=== PATIENT | female | born 1965 | race Caucasian/White ===

== ENCOUNTER 2017-07-29 01:42 | Emergency (ER) | payer OTHER ==
--- NOTE | 2017-07-29 01:50 | PDOC ---
History of Present Illness - General Chief Complaint: Bite Stated Complaint: BITE TO RIGHT WRIST Time Seen by Provider: 07/29/17 01:50 History Source: Patient, Spouse Exam Limitations: No Limitations - History of Present Illness Initial Comments: 07/29/17 04:18 Pt states that yesterday she had a bug bite on her right volar wrist, now with surrounding cellulitis that spreads up the arm as well as an area of herpetic looking blistes at the bite area. volar wrist is swollen, bu pt has FROM of fingers and no pain and no problem supinating and pronating. Pt has no DM; she is obese. Pt took a keflex, as she was told to do by her orthopedic surgeon, after her bilat knee replacements. SHe was told to start abx for any skin infection. Pt is afebrile and appears well. She is concerned that the redness on the wrist is spreading. Timing/Duration: 24 hours Modifying Factors: worse with: cold therapy, eating, immobilization, medication , movement, rest, other Associated Symptoms: denies: denies symptoms, chest pain, cough, diaphoresis, fever/chills, headaches, loss of appetite, malaise, nausea/vomiting, rash, seizure, shortness of breath, syncope, weakness, other Aspirin Received prior to arrival: No: no aspirin today, unknown, 81 mg x 1, 81 mg x 2, 81 mg x 3, 81 mg x 4, 325 mg x 1, provided at home, provided by EMS, provided by [facility] Contraindications(Core Measure): No: Allergy, Other, Active Blding w/i 24 hrs., Plavix, Receiving Warfarin Beta Talib Contraindications(Core Measure): No: Not Prescribed, Allergy, Bradycardia (HR <60bpm), Advanced Heart Block, Pacemaker, Other Past History - Travel Traveled outside of the country in the last 30 days: No Close contact w/someone who was outside of country & ill: No - Past Medical History Allergies/Adverse Reactions: Allergies Allergy/AdvReac Type Severity Reaction Status Date / Time No Known Allergies Allergy Verified 07/29/17 01:44 Home Medications: Ambulatory Orders Biotin 1 mg PO DAILY 06/10/15 Calcium/D3/Mag Ox/Criminal Defense Lawyer/Timothy/Zn [Caltrate+D3 Plus Mineral Minis] 1 each PO DAILY 06/10/15 Cyanocobalamin (Vitamin B-12) [Vitamin B12] 2,500 mcg PO DAILY 06/10/15 Ferrous Sulfate [Feosol] 325 mg PO DAILY 06/10/15 Levothyroxine [Synthroid -] 25 mcg PO DAILY 06/10/15 Meloxicam [Mobic] 7.5 mg PO DAILY 06/10/15 Multivitamin with Minerals [Icaps Plus] 1 each PO DAILY 06/10/15 Cephalexin [Keflex] 500 mg PO BID #14 capsule 07/29/17 Diphenhydramine HCl [Benadryl -] 25 mg PO Q6H #28 capsule 07/29/17 Escitalopram Oxalate [Lexapro -] 10 mg PO DAILY 07/29/17 Valacyclovir HCl [Valtrex] 1,000 mg PO TID #21 tablet 07/29/17 Thyroid Disease: Yes - Surgical History Cholecystectomy: Yes Orthopedic Surgery: Yes (B/L KNEE REPLACEMTS) - Suicide/Smoking/Psychosocial Hx Smoking History: Never smoked Hx Alcohol Use: Yes (RARE) Drug/Substance Use Hx: No Substance Use Type: None Hx Substance Use Treatment: No Review of Systems - Review of Systems Able to Perform ROS?: Yes Is the patient limited Mauritian proficient: No Constitutional: No: Symptoms Reported, See HPI, Chills, Diaphoresis, Fever, Loss of Appetite, Malaise, Night Sweats, Weakness, Weight Stable, Unintentional Wgt. Loss, Unexplained wgt Loss, Other HEENTM: No: Symptoms Reported, See HPI, Eye Pain, Blurred Vision, Tearing, Recent change in vision, Double Vision, Cataracts, Ear Pain, Ocular Prothesis, Ear Discharge, Nose Pain, Nose Congestion, Tinnitus, Nose Bleeding, Hearing Loss , Throat Pain, Throat Swelling, Mouth Pain, Dental Problems, Difficulty Swallowing, Mouth Swelling, Other Respiratory: No: Symptoms reported, See HPI, Cough, Orthopnea, Shortness of Breath, SOB with Exertion, SOB at Rest, Stridor, Wheezing, Productive cough, Hemoptysis, Other Cardiac (ROS): No: Symptoms Reported, See HPI, Chest Pain, Edema, Irregular Heart Rate, Lightheadedness, Palpitations, Syncope, Chest Tightness, Other ABD/GI: No: Symptoms Reported, See HPI, Abdominal Distended, Abd. Pain w/ defecation, Blood Streaked Bowels, Constipated, Diarrhea, Difficulty Swallowing , Nausea, Poor Appetite, Poor Fluid Intake, Rectal Bleeding, Vomiting, Indigestion, Abdominal cramping, Tarry Stools, Other : No: Symptoms Reported, See HPI, Burning, Dysuria, Discharge, Frequency, Flank Pain, Hematuria, Incontinence, Pain, Urgency, Testicular Mass, Testicular Swelling, Lesions, Testicular Pain, Other Musculoskeletal: No: Symptoms Reported, See HPI, Back Pain, Gout, Joint Pain, Joint Swelling, Muscle Pain, Muscle Weakness, Neck Pain, Joint Stiffness, Other Integumentary: No: Symptoms Reported, See HPI, Bruising, Change in Color, Change in Hair/Nails, Dryness, Erythema, Flushing, Lesions, Lumps, Pallor, Pruritus, Rash, Sweating, Other Neurological: No: Symptoms reported, See HPI, Headache, Numbness, Paresthesia, Pre-Existing Deficit, Seizure, Tingling, Tremors, Weakness, Unsteady Gait, Ataxia, Dizziness, Other Psychiatric: No: Anxiety, Depression, Frequent Crying, Stressors, Sleep Pattern Change, Emotional Problems, Mood Swings, Change in Appetite, Other Endocrine: No: Symptoms Reported, See HPI, Excessive Sweating, Flushing, Intolerance to Cold, Intolerance to Heat, Increased Hunger, Increased Thirst, Increased Urine, Unexplained Weight Gain, Unexplained Weight Loss, Change in Weight, Other *Physical Exam - Physical Exam General Appearance: Yes: Nourished, Appropriately Dressed HEENT: positive: EOMI, DA, Normal ENT Inspection, Normal Voice, Symmetrical, TMs Normal, Pharynx Normal Neck: positive: Trachea midline, Normal Thyroid, Supple Respiratory/Chest: positive: Lungs Clear, Normal Breath Sounds Cardiovascular: positive: Regular Rhythm, Regular Rate, S1, S2 Gastrointestinal/Abdominal: positive: Normal Bowel Sounds, Soft Musculoskeletal: positive: Normal Inspection Extremity: positive: Normal Capillary Refill, Normal Range of Motion, Swelling, Erythema, Other (right wrist volar swelling; no lymphangitis. No pain in the arm or wrist or fingers. Neurologically intact; strength 5/5. Flexors and extensors and lumbriacals intact.) Integumentary: positive: Erythema, Swelling, Other (herpetic like blisters at the area of the bug bite. Pt admits to icing the area and to scratching the bite extensively) Neurologic: positive: fast food worker II-XII NML intact, Fully Oriented, Alert, Normal Mood/ Affect, Normal Response, Motor Strength 07/13 ED Treatment Course - LABORATORY CBC & Chemistry Diagram: 07/29/17 02:24 Comment: Sed rate is 16 - normal Medical Decision Making - Medical Decision Making 07/29/17 04:23 t cory some sort of insect bite to the wrist -unclear etiology. Now herpes looking area at the bite and surrounding cellulitis. Pt was treated with a double dose of ancef, as she is over 250lbs, and she will go home with 500 keflex BID; Pt's CBC is normal and her sed rate is normal. She has been asked to follow with her PMD Dr. Bartholomew. She is stable for discharge at this time. *DC/Admit/Observation/Transfer Diagnosis at time of Disposition: Cellulitis, HSV infection - Discharge Dispostion Disposition: HOME Condition at time of disposition: Stable Decision to Admit order: No - Prescriptions Prescriptions: Cephalexin [Keflex] 500 mg PO BID #14 capsule Diphenhydramine HCl [Benadryl -] 25 mg PO Q6H #28 capsule Valacyclovir HCl [Valtrex] 1,000 mg PO TID #21 tablet - Referrals - Patient Instructions Printed Discharge Instructions: How to Care for an Insect Bite or Sting, DI for Cellulitis -- Adult, DI for Insect Bites and Stings - Post Discharge Activity
[2017-07-29 01:56] VITALS: BP 169/90; PULSE 95; TEMP 98.6; BMI 43.0
[2017-07-29] MEDS ORDERED: CEFAZOLIN 2 GM in DEXTROSE 5%-WATER - 50 ML IVPB ONE (02:05)
[2017-07-29] MEDS ORDERED: diphenhydrAMINE HCL 25 MG CAPSULE (FP) PO ONE (02:06)
[2017-07-29] MEDS ORDERED: diphenhydrAMINE HCL 50 MG CAPSULE ONE (02:15)
[2017-07-29] MEDS ORDERED: ceFAZolin SODIUM 1 GM VIAL ONE (02:15)
[2017-07-29 02:44] LABS: BASO % 0.7 % (0-2.0); HEMATOCRIT 43.1 % (32.4-45.2); HEMOGLOBIN 14.3 GM/dL (10.7-15.3); MCH 29.1 pg (25.7-33.7); MCHC 33.3 g/dl (32.0-36.0); MEAN CELL VOLUME 87.5 fl (80-96); MEAN PLT VOLUME 7.8 fl (7.5-11.1); MONO % 6.4 % (3.8-10.2); NEUT % 60.9 % (42.8-82.8); PLATELET COUNT 243 K/MM3 (134-434); RBC 4.93 M/mm3 (3.60-5.2); RDW 13.8 % (11.6-15.6)
== END 2017-07-29 03:08 | disposition home or self-care (01) ==
LOC: FER 01:42
DX: L03.113 Cellulitis of right upper limb (principal); B00.9 Herpesviral infection, unspecified; E03.9 Hypothyroidism, unspecified; Z96.653 Presence of artificial knee joint, bilateral; W57.XXXA Bitten or stung by nonvenomous insect and other nonvenomous arthropods, initial encounter; Y93.89 Activity, other specified; Y92.9 Unspecified place or not applicable
CPT/HCPCS: 36415; 85025; 85651; 99281-25